=== PATIENT | male | born 1945 | race Caucasian/White ===

== ENCOUNTER 2016-03-09 21:27 | Emergency (ER) | payer OTHER ==
[~2016-03-09] VITALS: Ht 177.8 cm; Wt 130.3 kg
[~2016-03-09 21:27] MED LIST: ADVAIR HFA120 INHALA IH; AERONEB GO NEB1 EACH MC; AERONEB GO1 EACH MC; ALEVE; ALEVE220 M2 PO; ASPIR-LOW81 MG PO; ASPIRIN325 MG PO; AZITHROMYCIN500 M1 PO; BENZONATATE100 MG PO; DELSYM30 MG/5 M1 PO; DUONEB 2.5-0.5 M3 ML AEROSOL; FOLIC ACID1 MG PO; PREDNISONE10 M1 PO; TENORMIN50 MG PO; THERAGRAN1 TABLET PO; VITAMIN B-1100 MG PO; ZOLPIDEM TARTRAT5 MG PO
[2016-03-09 23:38] VITALS: BP 148/84
== END 2016-03-09 23:39 | disposition home or self-care (01) ==
LOC: EME → EDBD 21:27 → EME 21:27
DX: S06.0X9A Concussion with loss of consciousness of unspecified duration, initial encounter (principal); E78.5 Hyperlipidemia, unspecified; I10 Essential (primary) hypertension; F17.200 Nicotine dependence, unspecified, uncomplicated; W18.30XA Fall on same level, unspecified, initial encounter; Z71.6 Tobacco abuse counseling
CPT/HCPCS: 70450